=== PATIENT | female | born 2000 | race Caucasian/White ===

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

== ENCOUNTER 2024-08-19 22:23 | Emergency (ER) | payer OTHER ==
[~2024-08-19] VITALS: Ht 167.6 cm; Wt 73.0 kg
[~2024-08-19 22:23] MED LIST changes: +HYDROCODON-ACE1 EA10 PO
[2024-08-20] MEDS ORDERED: HYDROCODONE BIT/ACETAMINOPHEN 5/325 MG 1 TAB HOME.PACK PO ONE (00:15)
[2024-08-20 00:20] VITALS: BP 122/84
== END 2024-08-20 00:20 | disposition home or self-care (01) ==
LOC: ED 22:23
DX: S83.015A Lateral dislocation of left patella, initial encounter (principal); W01.0XXA Fall on same level from slipping, tripping and stumbling without subsequent striking against object, initial encounter
CPT/HCPCS: 27560; 73560; 99283-25; A9270